=== PATIENT | male | born 1965 | race Caucasian/White ===

== ENCOUNTER 2017-06-13 22:08 | Emergency (ER) | payer MEDICAID ==
[~2017-06-13] VITALS: Ht 175.3 cm; Wt 60.2 kg
[~2017-06-13 22:08] MED LIST: ASPI-621 PO; ATOR10TA9 PO; LISI-167 PO; LOSA50TA6 PO; METO25TA35 PO; WARF5TAB7 PO; WARF7.5T6 PO
[2017-06-13] MEDS ORDERED: AMLO10TA2 PO (22:26)
[2017-06-13] MEDS ORDERED: SODIUM CHLORIDE FLUSH 10ML SYR IVF ONE (22:30)
[2017-06-13] MEDS ORDERED: ONDANSETRON 2MG/ML, 2ML IVPush ONE (22:30)
[2017-06-13] MEDS ORDERED: LABETALOL 5MG/ML, 20ML IVPush ONE (22:30)
[2017-06-13] MEDS ORDERED: MORPHINE SULFATE 4 MG/ML, 1ML IVPush PRN (22:30)
[2017-06-13] MEDS ORDERED: SODIUM CHLORIDE 0.9% 1,000ML IVBOLUS ONE (22:30)
[2017-06-13] MEDS ORDERED: NITROGLYCERIN OINT 2%, 1GM TP ONE ×2 (22:30→23:20)
[2017-06-13 22:48] LABS: HEMATOCRIT 50.1 % (39.2-51.8); HEMOGLOBIN 17.4 g/dL (13.7-18.0); WHITE BLOOD COUNT 13.6 x10^3/uL (3.4-10)
[2017-06-13 23:00] LABS: ASPARTATE AMINO TRANSFERASE 14 U/L (15-37); BLOOD UREA NITROGEN 28 mg/dL (7-18)
[2017-06-13 23:06] LABS: IS PT STATUS REG ER OR PRE ER? YES
[2017-06-13] MEDS ORDERED: LABETALOL 5MG/ML, 20ML ONE (23:21)
[2017-06-13] MEDS ORDERED: ONDANSETRON 2MG/ML, 2ML ONE (23:21)
[2017-06-13] MEDS ORDERED: MORPHINE SULFATE 4 MG/ML, 1ML ONE (23:21)
[2017-06-14 00:50] VITALS: BP 150/97
== END 2017-06-14 00:57 | disposition home or self-care (01) ==
LOC: ED 23:35
DX: R07.89 Other chest pain (principal); I10 Essential (primary) hypertension; F15.10 Other stimulant abuse, uncomplicated; Z91.14 Patient's other noncompliance with medication regimen; Z91.19 Patient's noncompliance with other medical treatment and regimen
CPT/HCPCS: 36415; 71020; 80053; 83690; 84484; 85025; 93005; 96361; 96374; 96375; 99285; J2405; J7030

== ENCOUNTER 2017-06-17 18:33 | Emergency (ER) | payer MEDICAID ==
[~2017-06-17] VITALS: Ht 175.3 cm; Wt 59.8 kg
[~2017-06-17 18:33] MED LIST changes: +AMLO10TA2 PO
[2017-06-17] MEDS ORDERED: FAMOTIDINE 20 MG/2 ML ONE (19:47)
[2017-06-17] MEDS ORDERED: ONDANSETRON 2MG/ML, 2ML ONE (19:47)
[2017-06-17] MEDS ORDERED: MORPHINE SULFATE 4 MG/ML, 1ML ONE (19:47)
[2017-06-17] MEDS ORDERED: OMEP10CA4 PO (19:57)
[2017-06-17] MEDS ORDERED: SODIUM CHLORIDE 0.9% 1,000ML IVBOLUS ONE (20:00)
[2017-06-17] MEDS ORDERED: FAMOTIDINE 20 MG/2 ML IVP ONE (20:00)
[2017-06-17] MEDS ORDERED: ONDANSETRON 2MG/ML, 2ML IVPush ONE (20:00)
[2017-06-17] MEDS ORDERED: SODIUM CHLORIDE FLUSH 10ML SYR IVF ONE (20:00)
[2017-06-17] MEDS ORDERED: MORPHINE SULFATE 4 MG/ML, 1ML IVPush PRN (20:00)
[2017-06-17 20:13] LABS: HEMATOCRIT 50.5 % (39.2-51.8); HEMOGLOBIN 17.4 g/dL (13.7-18.0); WHITE BLOOD COUNT 13.3 x10^3/uL (3.4-10)
[2017-06-17 20:24] LABS: BLOOD UREA NITROGEN 27 mg/dL (7-18)
[2017-06-17 20:27] LABS: ASPARTATE AMINO TRANSFERASE 11 U/L (15-37)
[2017-06-17] MEDS ORDERED: LABETALOL 5MG/ML, 20ML IVPush ONE (21:00)
[2017-06-17] MEDS ORDERED: MAALOX/HYOSCYAMINE/LIDOCAINE 45 ML BTL ONE (21:03)
[2017-06-17] MEDS ORDERED: LABETALOL 5MG/ML, 20ML ONE (21:03)
[2017-06-17 21:26] LABS: IS PT STATUS REG ER OR PRE ER? YES
[2017-06-17] MEDS ORDERED: MAALOX/HYOSCYAMINE/LIDOCAINE 45 ML BTL PO ONE (21:30)
[2017-06-17] MEDS ORDERED: hydrALAzine 20 MG/ML, 1ML ONE (21:44)
[2017-06-17] MEDS ORDERED: hydrALAzine 20 MG/ML, 1ML IV ONE (22:00)
[2017-06-17 22:28] VITALS: BP 157/94
== END 2017-06-17 22:45 | disposition home or self-care (01) ==
LOC: ED 21:50
DX: K21.9 Gastro-esophageal reflux disease without esophagitis (principal); I10 Essential (primary) hypertension; F17.210 Nicotine dependence, cigarettes, uncomplicated
CPT/HCPCS: 36415; 76700; 80053; 80307; 81003; 83690; 84484; 85025; 87491; 87591; 96361; 96374; 96375; 99285; J0360; J2405; J7030; G0479; S0028

== ENCOUNTER 2019-04-16 13:17 | Emergency (ER) | payer MEDICAID ==
[~2019-04-16] VITALS: Ht 175.3 cm; Wt 65.0 kg
[~2019-04-16 13:17] MED LIST changes: -AMLO10TA2 PO; +AMLO10TA8 PO; -ASPI-621 PO; +ASPI81TA45 PO; +LOSA50TA14 PO; -LOSA50TA6 PO; +OMEP10CA5 PO; +WARF-36 PO; -WARF5TAB7 PO; +WARF7.5T46 PO; -WARF7.5T6 PO
[2019-04-16] MEDS ORDERED: ONDANSETRON 2MG/ML, 2ML ONE (13:57)
[2019-04-16] MEDS ORDERED: MORPHINE SULFATE 4 MG/ML, 1ML ONE (13:58)
[2019-04-16] MEDS ORDERED: ONDANSETRON 2MG/ML, 2ML IVPush ONE (14:00)
[2019-04-16] MEDS ORDERED: MORPHINE SULFATE 4 MG/ML, 1ML IVPush PRN (14:00)
[2019-04-16] MEDS ORDERED: SODIUM CHLORIDE FLUSH 10ML SYR IVF ONE (14:00)
--- NOTE | 2019-04-16 14:03 | NUR ---
LABS COLLECTED. PT MEDCIATED PER MAR. AWAITING TESTING AND RESULTS AT THIS TIME. CALL LIGHT WITHIN REACH
[2019-04-16 14:19] LABS: BASOPHILS % (AUTO) 0 % (0-1); EOSINOPHILS % (AUTO) 0 % (1-7); LYMPHOCYTES # (AUTO) 0.66 x10^3/uL (1-3.4); LYMPHOCYTES % (AUTO) 4 % (22-44); MD NO; MEAN CORPUSCULAR HEMOGLOBIN 32.4 pg (27.5-34.5); MEAN CORPUSCULAR HGB CONC 33.7 g/dL (33.2-36.2); MEAN PLATELET VOLUME 6.8 fL (7.4-10.4); MONOCYTES # (AUTO) 0.22 x10^3/uL (0.2-0.8); MONOCYTES % (AUTO) 2 % (2-9); NEUTROPHILS # (AUTO) 14.44 x10^3/uL (1.8-6.8); NEUTROPHILS % (AUTO) 94 % (42-75); PLATELET COUNT 605 x10^3/uL (130-400); RED BLOOD COUNT 4.37 x10^6/uL (4.38-5.82); RED CELL DISTRIBUTION WIDTH 13.5 % (9.4-14.8)
[2019-04-16 14:28] LABS: ALBUMIN 3.6 g/dL (3.4-5.0); ANION GAP 8 mmol/L (5-15); CALCIUM 9.3 mg/dL (8.5-10.1); CHLORIDE 111 mmol/L (98-107)
[2019-04-16 14:33] LABS: ALANINE AMINOTRANSFERASE 13 U/L (12-78); ALKALINE PHOSPHATASE 117 U/L (45-117); BILIRUBIN,TOTAL 0.6 mg/dL (0.2-1.0); TOTAL PROTEIN 7.3 g/dL (6.4-8.2)
--- NOTE | 2019-04-16 14:53 | NUR ---
LABS BACK. PT TAKEN TO CT
--- NOTE | 2019-04-16 15:36 | NUR ---
ALL RESUTLS BACK AT THIS TIME, CHART UP FOR RECHECK
[2019-04-16] MEDS ORDERED: MAALOX/HYOSCYAMINE/LIDOCAINE 45 ML BTL PO ONE (16:00)
[2019-04-16] MEDS ORDERED: MAALOX/HYOSCYAMINE/LIDOCAINE 45 ML BTL ONE (16:07)
[2019-04-16 16:44] VITALS: BP 182/98
--- NOTE | 2019-04-16 16:46 | NUR ---
Patient/Caregiver given discharge instructions and they have confirmed that they understand the instructions. Patient ambulatory with steady gait. Pt left with all personal belongings in NAD. Pt provided with taxi voucher for safe DC to [facility] per pt request.
== END 2019-04-16 16:49 | disposition home or self-care (01) ==
LOC: ED 16:36
DX: R10.13 Epigastric pain (principal); R11.2 Nausea with vomiting, unspecified; K21.9 Gastro-esophageal reflux disease without esophagitis; I10 Essential (primary) hypertension
CPT/HCPCS: 36415; 74177; 80053; 83690; 85025; 96374; 96375; 99284; J2270; J2405